=== PATIENT | female | born 1965 | race Hispanic/Latino ===

== ENCOUNTER → 2023-04-20 16:57 | Outpatient (REF) | payer OTHER, SELFPAY | LOC: HWWDC 16:57 | PROVIDERS: ATTENDING PHYSICIAN Nurse Practitioner Adult Health | DX: Z12.31 Encounter for screening mammogram for malignant neoplasm of breast (principal) | CPT/HCPCS: 77063; 77067 ==

== ENCOUNTER → 2023-05-24 07:14 | Outpatient (REF) | payer OTHER, SELFPAY ==
[2023-05-24 09:08] LABS: Glycohemoglobin (HgbA1c) 5.7 % (4.0-5.6); Vitamin D, 25-OH*** 38.2 ng/mL (30-80)
[2023-05-24 09:11] LABS: ALT (SGPT) 71 U/L (0-35); AST (SGOT) 45 U/L (14-36); Albumin 4.4 g/dl (3.5-5.0); Alkaline Phosphatase 95 U/L (38-126); Blood Urea Nitrogen 12 mg/dl (7-17); Calcium 9.4 mg/dl (8.4-10.2); Carbon Dioxide 28 mmol/L (22-30); Chloride 108 mmol/L (98-107); GGTP 14 U/L (12-43); Glucose 94 mg/dl (70-99); Potassium 4.2 mmol/L (3.5-5.1); Sodium 141 mmol/L (135-145); Total Bilirubin 0.5 mg/dl (0.2-1.3); Total Protein 7.2 g/dl (6.3-8.2); eGFR > 60.00
== END ==
LOC: REG 07:14
PROVIDERS: ATTENDING PHYSICIAN Nurse Practitioner Adult Health
DX: R74.8 Abnormal levels of other serum enzymes (principal); R73.03 Prediabetes; E55.9 Vitamin D deficiency, unspecified
CPT/HCPCS: 36415; 80053; 82306; 82977; 83036

== ENCOUNTER → 2023-11-24 07:10 | Outpatient (REF) | payer OTHER, SELFPAY ==
[2023-11-24 11:08] LABS: ALT (SGPT) 41 U/L (0-35); AST (SGOT) 40 U/L (14-36); Albumin 4.4 g/dl (3.5-5.0); Alkaline Phosphatase 84 U/L (38-126); Blood Urea Nitrogen 11 mg/dl (7-17); Calcium 9.6 mg/dl (8.4-10.2); Carbon Dioxide 27 mmol/L (22-30); Chloride 105 mmol/L (98-107); Glucose 87 mg/dl (70-99); Potassium 4.6 mmol/L (3.5-5.1); Sodium 144 mmol/L (135-145); Total Bilirubin 0.6 mg/dl (0.2-1.3); Total Protein 7.4 g/dl (6.3-8.2); eGFR > 60.00
[2023-11-24 12:15] LABS: Glycohemoglobin (HgbA1c) 5.4 % (4.0-5.6)
== END ==
LOC: REG 07:10
PROVIDERS: ATTENDING PHYSICIAN Nurse Practitioner Adult Health
DX: R74.8 Abnormal levels of other serum enzymes (principal); R73.03 Prediabetes
CPT/HCPCS: 36415; 80053; 83036

== ENCOUNTER → 2024-07-05 06:45 | Outpatient (REF) | payer OTHER, SELFPAY ==
[2024-07-05 08:51] LABS: Hematocrit 39.3 % (37.0-47.0); Hemoglobin 12.7 g/dL (12.0-16.0); Mean Corp Hgb Conc. 32.3 g/dL (33.0-37.0); Mean Corpuscular Hgb 28.9 pg (27.0-31.0); Mean Corpuscular Volume 89.3 fL (81.0-99.0); Mean Platelet Volume 10.1 fL (7.4-10.4); Platelet Count 206 10^3/uL (130-400); Red Cell Dist. Width 12.9 % (11.5-14.5); White Blood Cell Count 3.8 10^3/uL (4.8-10.8)
[2024-07-05 12:15] LABS: ALT (SGPT) 71 U/L (0-35); AST (SGOT) 47 U/L (14-36); Alkaline Phosphatase 87 U/L (38-126); Blood Urea Nitrogen 11 mg/dl (7-17); Calcium 9.5 mg/dl (8.4-10.2); Carbon Dioxide 26 mmol/L (22-30); Chloride 109 mmol/L (98-107); Glucose 83 mg/dl (70-99); HDL Cholesterol 53 mg/dl; LDL Cholesterol, Calculated 114 mg/dl; Potassium 4.3 mmol/L (3.5-5.1); Sodium 143 mmol/L (135-145); Total Bilirubin 0.6 mg/dl (0.2-1.3); Total Cholesterol 180 mg/dl (50-199); Total Protein 6.9 g/dl (6.3-8.2); Triglyceride 68 mg/dl (10-149); Very Low Density Lipoprotein 13 mg/dl (0-30); eGFR > 60.00
[2024-07-05 16:48] LABS: Vitamin D, 25-OH*** 35.5 ng/mL (30-80)
[2024-07-05 17:02] LABS: TSH Reflex To Free T4 3.55 uIU/ml (0.47-4.68)
[2024-07-06 18:56] LABS: FIT-Fecal Occult Blood Interp Negative
== END ==
LOC: CLINIC 06:45
PROVIDERS: ATTENDING PHYSICIAN Nurse Practitioner Adult Health
DX: Z00.00 Encounter for general adult medical examination without abnormal findings (principal); E55.9 Vitamin D deficiency, unspecified
CPT/HCPCS: 36415; 80053; 80061; 82306; 83520; 84443; 85027

== ENCOUNTER → 2024-07-19 06:39 | Outpatient (REF) | payer OTHER, SELFPAY | LOC: HWWDC 06:39 | PROVIDERS: ATTENDING PHYSICIAN Nurse Practitioner Adult Health | DX: Z12.31 Encounter for screening mammogram for malignant neoplasm of breast (principal) | CPT/HCPCS: 77063; 77067 ==

== ENCOUNTER 2024-10-19 09:03 | Emergency (ER) | payer OTHER, SELFPAY ==
[2024-10-19 09:06] VITALS: BP 123/86
--- NOTE | 2024-10-19 09:58 | ED.GENMED ---
History of Present Illness
General
Chief Complaint: Headache
Time Seen by Provider: 10/19/24 09:58
History of Present Illness
History of Present Illness:
PAST MEDICAL HISTORY AND REVIEW OF OLD RECORDS
- The patient is otherwise fairly healthy. I reviewed records, the patient was seen here with shingles in 2022.
Note:
CHIEF COMPLAINT(S)
Cough, headache, ear inflammation, facial drooping, tinnitus, and sinus pain.
HISTORY OF PRESENT ILLNESS
The patient is a 59-year-old female with a history of cough and headache symptoms worsening over several weeks. Initially suspecting a viral infection, the symptoms have progressed, leading to concerns of a possible bacterial etiology. The patient
reports ongoing tinnitus for about a month, with more significant symptoms in the right ear. She describes her right eyelid drooping, which was noted in a clinical encounter and prompted her visit. The current headache presented with increased
intensity today. Upon examination, there were signs of sinus disease in imaging, specifically sinusitis, but no abnormalities in intracranial findings.
ADDITIONAL HISTORY OBTAINED FROM SOURCES OTHER THAN THE PATIENT
According to the patient�s family, the [facility] advised her to visit due to noticeable drooping in her right eyelid and a severe headache.
SOCIAL DETERMINANTS AFFECTING HEALTH
The patient is supported by family members who are actively involved during her clinical encounters, as evidenced by their communication with healthcare facilities to advocate for evaluation.
REVIEW OF SYSTEMS
- Ear, Nose, and Throat: Complaints of tinnitus for about a month, right-sided ear pain, and drooping of the right eyelid. Sinus tenderness noted on the right maxillary and frontal regions.
- Neurological: Headache worsening today. No vision changes or focal neurological deficits, but some eyelid drooping noted on the right side.
- Respiratory: Persistent cough lasting for several weeks.
PHYSICAL EXAM
General: Alert, no acute distress.
Head: Normocephalic, atraumatic. Very subtle superolateral right eyelid drooping.
Eye, Ears, Nose, and Throat: Oral mucosa moist. Right-sided tenderness in the maxillary and frontal sinus regions. Some ear wax present in right ear but no significant bulging or redness.
Neurological: Alert and oriented to person, place, time, and situation. Normal strength and coordination observed. Good muscle tone and strength with standard tactile response. Excellent yulior-an-szpa coordination.
Respiratory: Respirations are non-labored.
PLAN
1. Initiate antibiotic therapy to address potential bacterial sinusitis and manage symptoms. Prescription to be sent to patients pharmacy.
2. Recommended follow-up with a neurologist due to right eyelid drooping, with contact information for Dr. Mendez provided to explore neurological assessment.
3. Patient advised to return if symptoms worsen or persist beyond the antibiotic treatment course.
DIFFERENTIAL DIAGNOSIS
The Differential Diagnosis includes, in no particular order and is not limited to:
1. Bacterial sinusitis
2. Viral upper respiratory tract infection
3. Unilateral [place] palsy
4. Myasthenia Gravis
5. Intracranial neoplasm (ruled out with normal CT brain)
6. Otitis media
7. Allergic sinusitis
8. Orbital cellulitis
9. Giant cell arteritis
10. Migraine with aura
RADIOLOGY
- The CAT scan of the brain shows no acute intracranial abnormality but does show signs of sinusitis
UPDATE
-SUMMARY OF ENCOUNTER
The patient was seen in the emergency department for a worsening headache, drooping of the right eyelid, cough, and tinnitus that have persisted over several weeks. The examination revealed some minimal edema in the right supralateral aspect of the
right eye. Based on the symptoms progression and suspected bacterial infection, antibiotic therapy was initiated to address presumed sinusitis.
PLAN
Initiate antibiotic therapy to treat the suspected bacterial sinusitis and manage symptoms.
MEDICATION RECONCILIATION
1. Prescription for antibiotics initiated to treat presumed bacterial sinusitis.
MEDICAL DECISION MAKING
- Complexity of Data Reviewed: Chronic conditions affecting care include the patients history of persistent headache, cough, tinnitus, and sinus disease. Differential diagnosis considerations include bacterial sinusitis, viral upper respiratory
tract infection, unilateral [place] palsy, myasthenia gravis, otitis media, and others.
- Data:
Category 1: Reviewed available clinical information and history documenting external consultations with ENT and primary care. Clinical data obtained from these sources were considered in formulating the management plan.
- Risk: Prescription medication was prescribed for the management of suspected bacterial sinusitis.
DIAGNOSIS
- Bacterial Sinusitis (J01.90)
- Tinnitus (H93.19)
- Ptosis, unspecified (H02.409)
Past History
Past History
ED Past Medical History: None
ED Past Surgical History: (X1)
Social History
Tobacco: Non-smoker
Alcohol: None
Personal: Single
Living: with family
Phy Exam
Physical Exam
Physical Exam:
See HPI
Course
Orders/Labs/Results
Orders:
Orders
10/19/24 09:09
CT Head W/o Iv Contrast Urgent
Comment:
Reason For Exam: ARROYO since wednesday with right eye droop
10/19/24 10:33
Amoxicillin 875 mg/Clav 125 mg [Augmentin 875 mg/125 mg] 1 tablet PO NOW STA
Vital Signs
Initial and Last Documented VS:
Initial Vital Signs
Temp Pulse Resp BP Pulse Ox
36.7 C 91 16 123/86 98
10/19/24 09:06 10/19/24 09:06 10/19/24 09:06 10/19/24 09:06 10/19/24 09:06
Last Documented Vital Signs
Temp Pulse Resp BP Pulse Ox
36.7 C 91 16 123/86 98
10/19/24 09:06 10/19/24 09:06 10/19/24 09:06 10/19/24 09:06 10/19/24 10:01
*Pulse Oximetry
SaO2: 98
Oxygen Mode of Delivery: Room air
Patient hypoxic: no
*Critical Care Note
Total Time (30-74mins, 75-104mins- exclusive of procedures): Not Applicable
ED Attending Note
-
Portions of this chart may have been created with voice recognition software.� Occasional wrong word or��sound alike� substitutions may have occurred due to the inherent limitations of voice recognition software.
Discharge Plan
Departure
Patient Disposition: Home (Routine Discharge)
Date of Disposition: 10/19/24
Time of Disposition: 10:39
Patient with high blood pressure during this ER visit?: Yes
Discharge Problem:
Acute sinusitis
Instructions: Sinusitis in adults, BLOOD PRESSURE
Prescriptions:
New
amoxicillin-pot clavulanate 875-125 mg tablet
1 tab PO Q12H Qty: 14 0RF
No Action
valacyclovir [Valtrex] 1 gram tablet
1,000 mg PO Q8H Qty: 20 0RF
Referrals:
Gladys Mendez MD [Non-Admitting Privileges, Neurology]
Activity Restrictions/Additional Instructions:
Next dose of antibiotics this evening. Return here if worse or other concerns. Given the abnormality near the right eye, I am also given you the contact information for a local neurologist you can follow-up with as well, Dr. Mendez.
Interventions
Interventions:
*Risk Screen - Suicide Last Done: 10/19/24 09:06
*Neglect/Abuse Screening Last Done: 10/19/24 09:06
Discharge Date and Time
Print Language: [id number]
[2024-10-19] MEDS: AUGMENTIN 875 MG/125 MG 1 TABLET PO (10:40)
== END 2024-10-19 10:53 | disposition home or self-care (01) ==
LOC: EMR 09:03
PROVIDERS: EMERGENCY PHYSICIAN Emergency Medicine; FAMILY PHYSICIAN Nurse Practitioner Adult Health
DX: J01.90 Acute sinusitis, unspecified (principal); R05.9 Cough, unspecified; H93.11 Tinnitus, right ear
CPT/HCPCS: 99284; 70450

== ENCOUNTER → 2024-11-07 09:01 | Outpatient (REF) | payer OTHER, SELFPAY ==
[2024-11-07 10:09] LABS: ALT (SGPT) 50 U/L (0-35); AST (SGOT) 35 U/L (14-36); Albumin 4.2 g/dl (3.5-5.0); Alkaline Phosphatase 88 U/L (38-126); Total Protein 7.4 g/dl (6.3-8.2)
== END ==
LOC: CLINIC 09:01
PROVIDERS: ATTENDING PHYSICIAN Nurse Practitioner Adult Health
DX: R74.8 Abnormal levels of other serum enzymes (principal)
CPT/HCPCS: 36415; 80076